=== PATIENT | male | born 1970 | race Caucasian/White ===

== ENCOUNTER 2020-12-06 12:31 | Emergency (ER) | payer OTHER ==
[~2020-12-06] VITALS: Ht 172.7 cm; Wt 89.0 kg
--- NOTE | 2020-12-06 13:16 | RAD ---
EXAM: Thoracic and lumbar spine CT without contrast. HISTORY: Pain. TECHNIQUE: Computed tomographic images of the thoracic and lumbar spine were obtained without contras t. Multiplanar reformatting was performed. *One or more of the following individualized dose reduction techniques were utilized for this examina tion: 1. Automated exposure control. 2. Adjustment of the mA and/or kV according to patient size. 3. Use of iterative reconstruction technique. COMPARISON: None. FINDINGS: Thoracic spine: There is no acute or subacute fracture. There is a minimal chronic superior endplate depression at T4. There is minimal endplate remodeling predominantly at T8-T9. No suspicious osseous lesion is seen. There is degenerative endplate remodeling with disc space narrowing, osteophytosis an d Schmorl's node formation at the lower cervical levels. This results in moderate right and mild left foraminal stenosis at C5-C6 and mild right and moderate left foraminal stenosis at C6-C7. No signifi cant thoracic foraminal or central canal stenosis is seen. There is a left paracentral disc protrusio n at T6-T7. There are few additional minimal disc bulges and disc protrusions. Lumbar spine: There is a moderate acute appearing compression fracture of L2 with approximately one h [facility] decrease in vertebral body height and 2 mm retropulsion of the posterior superior cortex into the central canal. There is minimal central canal stenosis at this level. No additional fracture is seen . There is no suspicious lytic or sclerotic osseous lesion. There is mild multilevel endplate remodel ing, primarily at L5-S1. The sacroiliac joints are intact. At L1-L2, there is slight retropulsion of the L2 cortex resulting in minimal central canal stenosis. At L2-L3, there is no stenosis. At L3-L4, there is a disc bulge. There is prominent dorsal epidural fat. There is mild bilateral fora tal stenosis. There is mild central canal stenosis. At L4-L5, there is a disc bulge. There is mild right foraminal stenosis. At L5-S1, there is a disc bulge and endplate remodeling. There is mild right foraminal stenosis. IMPRESSION: 1. Moderate acute appearing compression fracture of L2. There is minimal retropulsion of the cortex a nd central canal stenosis at this level. No additional acute osseous finding. 2. Multilevel degenerative change involving the thoracic and lumbar spine, probably in stenosis as de scribed above. There is also degenerative change involving the lower cervical spine, described above. Electronically signed by: Hailee Mosquera MD (12/06/2020 1:13 PM) [id number]
--- NOTE | 2020-12-06 13:29 | PHYS DOC ---
Past History Past Medical History: No Pertinent History Past Surgical History: No Surgical History Alcohol Use: Heavy Additional Alcohol Information: 2 drinks daily Adult General Chief Complaint Chief Complaint: MECHANICAL FALL HPI HPI Patient is a 50-year-old male who presents to the emergency room complaining of mid to lower back pain after a fall. Patient was on his roof fixing something on his chimney. He went to step back on his ladder and the ladder gave out from under him. He fell around 8 feet. He states he landed straight on his back. He did hit the back of his head but did not lose consciousness. He has not had any nausea or vomiting. He denies any, headache. He remembers the entire event. He states most of the impact was on his lower back. He is complaining of mid back pain with radiation into the legs. He states the radiation into his legs has resolved. He denies any kind of numbness. He was ambulatory on scene. He states that walking did make his back hurt worse. He denies any arm or leg pain. He denies any chest pain or increased pain with breathing. Review of Systems Review of Systems Complete ROS is negative unless otherwise documented in HPI Physical Exam Physical Exam General: Awake, alert, NAD. Well Nourished, well hydrated. Cooperative HEENT: Atraumatic, EOMI, PERRL, airway patent, moist oral mucosa, no nasal septal hematoma, no facial crepitus or deformity Neck: Supple, trachea midline, no C-spine tenderness Respiratory: CTA bilaterally, normal effort, no wheezing/crackles, no crepitus CV: RRR, no murmur, cap refill <2, 2+ bilateral radial/DP pulses GI: Soft, nondistended, nontender, no masses MSK: Thoracic and lumbar spine tenderness, pelvis stable and nontender Skin: Warm, dry, intact Neuro: A&O x3, speech NL, sensory and motor grossly intact, no focal deficits Psych: Normal affect, normal mood, not suicidal or homicidal Current Patient Data Vital Signs Vital Signs Date Time Temp Pulse Resp B/P (MAP) Pulse Ox O2 Delivery O2 Flow Rate FiO2 12/06/20 12:31 97.6 109 16 131/80 (97) 96 Room Air EKG EKG [] Radiology/Procedures Radiology/Procedures [] Heart Score C/O Chest Pain: N/A Risk Factors: Risk Factors: DM, Current or recent (<one month) smoker, HTN, HLP, family history of CAD, obesity. Risk Scores: Risk Factors: DM, Current or recent (<one month) smoker, HTN, HLP, family history of CAD, obesity. Course & Med Decision Making Course & Med Decision Making Pertinent Labs and Imaging studies reviewed. (See chart for details) Patient is 50-year-old male presents to the emergency room after falling off of a roof. Patient has mid back pain. Thoracic and lumbar C-spine were ordered. Patient has an acute compression fracture with retropulsion. Neurosurgery at was paged and evaluated the patient's images. We discussed the case with Dr. Jurado who recommends pain management and following up in spine clinic in 2 weeks. Patient was given symptomatic care here in the emergency room. He is neurologically intact. He was ambulated around the emergency room without any neurologic symptoms. Patient's test results and vitals while in the ED were fully reviewed and discussed with the patient. Patient is stable and at this time does not need admission to the hospital. We have discussed strict return precautions and the importance of following up with their Primary Care Ph ysician. Patient stated understanding and was given an opportunity to ask any questions. Patient is in agreement with plan. Dragon Disclaimer Dragon Disclaimer This electronic medical record was generated, in whole or in part, using a voice recognition dictation system. Departure Departure: Impression: Primary Impression: Closed compression fracture of L2 vertebra Additional Impression: Fall from ladder Disposition: 01 HOME / SELF CARE / HOMELESS Condition: STABLE Patient Instructions: Lumbar Fracture Additional Instructions: Please follow up in Spine Clinic in 1-2 weeks. Spine Clinic Scripts Methocarbamol (METHOCARBAMOL) 500 Mg Tablet 500 MG PO Q8H PRN for PAIN for 10 Days, #30 TAB Prov: JESSE SHELTON MD 12/06/20 Lidocaine (Lidocaine PATCH ) 1 Each Adh..patch 1 EACH TP DAILY for FOR LOCAL PAIN for 10 Days, #10 PATCH REMOVE AFTER 12 HOURS Prov: JESSE SHELTON MD 12/06/20 Oxycodone Hcl/Acetaminophen (PERCOCET 10-325 MG TABLET ) 1 Each Tablet 1 TAB PO PRN Q6HRS PRN for PAIN for 5 Days, #20 TAB Prov: JESSE SHELTON MD 12/06/20 Problem Qualifiers JESSE SHELTON MD Dec 06, 2020 13:29
[2020-12-06 14:00] VITALS: BP 138/83
[2020-12-06] MEDS ORDERED: LIDOCAINE (700MG/PATCH) PATCH. TD SCH (14:15)
[2020-12-06] MEDS ORDERED: oxyCODONE/APAP 5/325 1 TAB TABLET PO ONE ×2 (14:15→15:30)
[2020-12-06] MEDS ORDERED: METHOCARBAMOL 500 MG TABLET PO SCH (14:30)
[2020-12-06] MEDS ORDERED: KETOROLAC 60 MG/2 ML VIAL. IM ONE (15:30)
[2020-12-06] MEDS ORDERED: METH-559 PO (15:44)
[2020-12-06] MEDS ORDERED: OXYC1TAB22 PO (15:44)
[2020-12-06] MEDS ORDERED: LIDO700A21 TP (15:44)
[2020-12-06] MEDS ORDERED: PATCH REMOVAL. MC SCH (21:00)
== END 2020-12-06 16:09 | disposition home or self-care (01) ==
LOC: ER 12:31
DX: S32.020A Wedge compression fracture of second lumbar vertebra, initial encounter for closed fracture (principal); F10.20 Alcohol dependence, uncomplicated; Y90.9 Presence of alcohol in blood, level not specified; W11.XXXA Fall on and from ladder, initial encounter; Y93.89 Activity, other specified; Y92.89 Other specified places as the place of occurrence of the external cause; Y99.8 Other external cause status
CPT/HCPCS: 72128; 72131; 96372; 99285; J1885